=== PATIENT | female | born 1995 | race Hispanic/Latino ===

== ENCOUNTER 2020-04-16 20:04 | Emergency (ER) | payer OTHER ==
[2020-04-16 20:34] LABS: BASOPHILS % (AUTO) 1.2 % (0.0-5.0); EOSINOPHILS % (AUTO) 1.2 % (0.0-8.0); HEMATOCRIT 40.7 % (36-48); LYMPHOCYTES % (AUTO) 26.4 % (21.0-51.0); MEAN CORPUSCULAR HEMOGLOBIN 30.2 pg (27.0-33.0); MEAN CORPUSCULAR HGB CONC 33.9 g/dL (32.0-36.0); MEAN CORPUSCULAR VOLUME 89.1 fL (79-99); MONOCYTES % (AUTO) 6.1 % (3.0-13.0); PLATELET COUNT (AUTO) 273 K/uL (130-400); RED BLOOD CELL COUNT(AUTO) 4.57 MIL/uL (4.00-5.50); WHITE BLOOD COUNT (AUTO) 6.7 K/uL (4.8-10.8)
[2020-04-16 20:36] LABS: APPEARANCE,URINE Clear (CLEAR); BILIRUBIN,URINE Negative (NEGATIVE); COLOR,URINE Yellow (YELLOW); GLUCOSE, URINE (UA) Negative (NEGATIVE); KETONES,URINE Negative (NEGATIVE); LEUKOCYTE ESTERASE ,URINE Trace (NEGATIVE); NITRATE,URINE Negative (NEGATIVE); OCCULT BLOOD,URINE Negative (NEGATIVE); PROTEIN,URINE Negative (NEGATIVE)
[2020-04-16] MEDS ORDERED: KETOROLAC TROMETHAMINE 15MG/ML ONE (20:40)
[2020-04-16] MEDS ORDERED: ONDANSETRON HCL 4 MG/2 ML VIAL ONE ×2 (20:40→22:05)
[2020-04-16 20:44] LABS: CREATININE 0.7 mg/dL (0.5-1.5); POTASSIUM 3.7 mmol/L (3.5-5.1)
[2020-04-16 20:48] LABS: HCG,QUAL RESULT NEGATIVE (NEGATIVE)
[2020-04-16 20:49] LABS: ALBUMIN 4.6 g/dL (3.5-5.0); BACTERIA,URINE Rare /HPF (None Seen); BILIRUBIN,TOTAL 0.3 mg/dL (0.2-1.0); RBC,URINE 0-1 /HPF (0-1); SQUAMOUS EPITHELIAL CELL,UR Few /HPF (0-2); TOTAL PROTEIN, SERUM 8.6 g/dL (6.0-8.3)
[2020-04-16] MEDS ORDERED: CEFTRIAXONE SODIUM 1 GM ONE (22:05)
[2020-04-16] MEDS ORDERED: METRONIDAZOLE 500 MG TABLET ONE (22:05)
[2020-04-16] MEDS ORDERED: AZITHROMYCIN 250 MG TABLET PO ONE (22:06)
== END 2020-04-16 22:41 | disposition home or self-care (01) ==
LOC: EDH 20:04
DX: N72 Inflammatory disease of cervix uteri (principal); A64 Unspecified sexually transmitted disease
CPT/HCPCS: 36415; 76856; 80053; 81001; 81025; 83690; 85025; 87088; 87210; 87486; 87797; 96361; 96374; 96375; 96376; 99284; J0696; J1885; J2405 ×2